=== PATIENT | female | born 1990 | race Caucasian/White ===

== ENCOUNTER 2019-03-03 14:06 | Inpatient (IN) | payer OTHER ==
[2019-03-03] VITALS (10 sets, daily range): BP systolic 109–120; BP diastolic 59–70; PULSE 79–123; TEMP 97.6–98.3
[~2019-03-03] VITALS: Ht 170.2 cm; Wt 71.4 kg
--- NOTE | 2019-03-03 14:10 | NUR ---
Patient arrives ambulatory with spouse with complaints of contractions on and off since 0500 this morning. Patient states they spaced out earlier, but since about 1300 have increased in frequency and strength. Patient denies ROM or vaginal bleeding. Reports normal movement. Changes into gown, EFM explained and placed. VSS. Patient breathing through and moaning with contractions. 1420- SVE by Johanne Nunez RN 2-/-1 with BBOWI. Assessment completed. 1425- Dr. Conteh notified, see physician notification. Patient updated on plan of care. Decision to wait to admit until monitoring and repeat cervical check in one hour as patient would like to labor naturally and does not desire interventions if possible. Emesis noted. 1440- Reactive FHR strip obtained. Patient taken off EFM per order and request to ambulate. Plan for SVE at 1520. Call light in reach.
[2019-03-03] MEDS ORDERED: PEPCID 20MG TAB20 MG PO (14:39)
[2019-03-03] MEDS ORDERED: PROAIR HFA0.09 MG/AC IH (14:40)
[2019-03-03] MEDS ORDERED: PRENATAL (14:40)
--- NOTE | 2019-03-03 15:18 | NUR ---
Patient back on EFM following ambulation. SVE per Johanne Nunez RN /-1. Patient requesting admission at this time. Dr. Conteh notified, see physician notifcation. 1535- IV started in , saline locked per patient request. Consents explained and signed. 1540- Reactive FHR strip obtained. Patient off EFM per order and request to ambulate.
[2019-03-03 15:57] LABS: BASO % 0.2 % (0.0-2.0); GRAN # 14.6 (1.4-6.5); GRAN % 89.2 % (42.2-75.2); HEMATOCRIT 38.7 % (37.0-47.0); HEMOGLOBIN 13.3 g/dl (12.5-16.0); LYMPH # 1.1 (1.2-3.4); LYMPH % 6.4 % (20.0-51.0); MEAN CELL VOLUME 95 fl (80.0-100.0); MEAN CORPUSCULAR HEMOGLOBIN 33 pg (27.0-31.0); MEAN CORPUSCULAR HGB CONC 34 g/dl (33.0-37.0); MEAN PLATELET VOLUME 10.5 fl (7.4-10.4); MONO # 0.6 (0.1-0.6); MONO % 3.4 % (1.7-9.3); PLATELET COUNT 201 K/mm3 (130-400); RED BLOOD COUNT 4.08 M/mm3 (4.10-5.30); REDCELL DISTRIBUTION WIDTH-CV 13.4 % (11.5-14.5)
--- NOTE | 2019-03-03 16:30 | NUR ---
Patient back on EFM following ambulation. Patient requests to stand and lean over bed, RN remains at bedside holding on EFM. Difficulty tracing continuously due to maternal movement. Patient does not desire SVE at this time.
--- NOTE | 2019-03-03 17:30 | NUR ---
Patient back on EFM. Requesting to get in hot tub. Discussed plan for FHR strip and SVE and hot tub following. 1800- SVE 3/100/0 with vertex well applied to cervix. Patient sitting upright. Will notify RN when ready for hot tub. See physician notification.
--- NOTE | 2019-03-03 18:35 | NUR ---
1835- Patient in hot tub at this time, off EFM. Intermittent monitoring to be resumed after 40 minutes. Patient educated on telling nurse imidiately if water breaks or if contractions/pressure changes/gets more intense.
[2019-03-04] VITALS (19 sets, daily range): BP systolic 88–126; BP diastolic 49–77; PULSE 59–134; TEMP 97.7–98.8
--- NOTE | 2019-03-04 07:27 | NUR ---
PATIENT IN KNEE CHEST, PATIENT DELIVERED A VIABLE MALE AT THIS TIME. TO WARMER IN CARE OF EZEQUIEL Flores RN. CORD CLAMPED AND CUT BY DR GARIBAY. [address] GARIBAY. FUNDAL MASSAGE PROVIDED AT THIS TIME. MODERATE TO HEAVY BLEEDING. PATIENT REFUSED PITOCIN. 0750- PITOCIN STARTED AT 333 MLS/ HR PER DR. GARIBAY RECCOMENDATION. 2ND DEGREE LACERATION REPAIRED BY DR GARIBAY. RECOVERY STARTED AT 0800.
--- NOTE | 2019-03-04 09:30 | NUR ---
PATIENT AMBULATED TO BATHROOM FROM BED. [facility] GIVEN, WASHED PATIENTS LEFS, NEW GOWN PROVIDED. MESH PANTIES AND PAD PROVIDED. PATIENT WHEELED HOLDING TO ROOM 215.
--- NOTE | 2019-03-04 14:00 | NUR ---
Patient c/o shortness of breath. Vitals signs obtained - HR 118, O2 sat 100% on room air. Lungs sounds CTA bilaterally. Fundus firm, lochia WNL. Patient denies feeling lightheaded or dizzy. Patient encouraged to sleep. Baby taken to the nursery.
--- NOTE | 2019-03-04 16:30 | NUR ---
Patient awakens from nap, vitals obtained and WNL. Patient up to bathroom with assist, voids without difficulty. Lochia WNL. When returning to bed patient c/o feeling dizzy and short of breath. O2 sat 100% on room air. Dr. Conteh called and notified of patient's status, order for an H&H now recieved.
[2019-03-04 17:21] LABS: HEMATOCRIT 29.3 % (37.0-47.0); HEMOGLOBIN 10.2 g/dl (12.5-16.0)
[2019-03-05 00:15] VITALS: BP 87/54; PULSE 107; TEMP 98.3
--- NOTE | 2019-03-05 00:30 | NUR ---
STEADY WHEN UP TO BR. INT DISCONTINUED PER PT REQUEST
[2019-03-05 04:30] VITALS: BP 88/50; PULSE 100; TEMP 98.2
[2019-03-05 06:54] VITALS: BP 91/59; PULSE 93; TEMP 97.7
[2019-03-05 16:30] VITALS: BP 97/55; PULSE 84; TEMP 98.3
[2019-03-05 20:20] VITALS: BP 93/60; PULSE 114; TEMP 98.4
--- NOTE | 2019-03-06 06:43 | NUR ---
REPORT RECEIVED FROM OFF GOING RN. CARE ASSUMED BY THIS RN.
[2019-03-06 07:34] VITALS: BP 96/56; PULSE 77; TEMP 99
[2019-03-06] MEDS ORDERED: IBU600 MG PO (10:34)
--- NOTE | 2019-03-06 12:52 | NUR ---
Initial visit; Mom thanked [employer] Feeder for offering congratulations and God's blessings for the of her son. [employer] Feeder thanked Mom for choosing [place].
[2019-03-06 16:15] VITALS: BP 94/61; PULSE 97; TEMP 98.9
== END 2019-03-06 17:30 | disposition home or self-care (01) | DRG 807 ==
LOC: LDRO 14:06 → LDR 14:15 → LDRO 15:36 → OB 15:37 → LDR 15:37 → OB 03-04 09:50
PROVIDERS: Obstetrics & Gynecology
PROC: 10E0XZZ Delivery of Products of Conception, External Approach (ICD-10-PCS; principal; 2019-03-04)
PROC: 0KQM0ZZ Repair Perineum Muscle, Open Approach (ICD-10-PCS; 2019-03-04)
DX: O42.92 Full-term premature rupture of membranes, unspecified as to length of time between rupture and onset of labor (principal); Z37.0 Single live birth; O77.0 Labor and delivery complicated by meconium in amniotic fluid; O62.2 Other uterine inertia; O70.1 Second degree perineal laceration during delivery; Z3A.40 40 weeks gestation of pregnancy
CPT/HCPCS: J2590; J7120

== ENCOUNTER 2022-03-28 16:39 | Inpatient (IN) | payer OTHER ==
[~2022-03-28] VITALS: Ht 170.2 cm; Wt 70.0 kg
[~2022-03-28 16:39] MED LIST: IBU600 MG PO; PEPCID 20MG TAB20 MG PO; PRENATAL; PROAIR HFA0.09 MG/AC IH
[2022-04-07] VITALS (31 sets, daily range): BP systolic 89–134; BP diastolic 43–73; PULSE 76–125; TEMP 96.9–100.2
--- NOTE | 2022-04-07 06:30 | NUR ---
0630- PATIENT AMBULATORY TO UNIT WITH SPOUSE. PATIENT ORIENTED TO LABOR ROOM 3. ASSISTED INTO GOWN AND ONTO EFM. EFM AND TOCO TRACING WELL. CONSENTS REVIEWED AND SIGNED, ASSESSMENT COMPLETE, IV TO R FOREARM, BLOOD COLLECTED AND SENT TO LAB PER ORDERS. LR INFUSING SEE EMAR. 0720- SVE BY Isaiah BARTHOLOMEW RN. SEE FLOW RECORD. PIT STARTED PER ORDERS SEE EMAR.
[2022-04-07] MEDS ORDERED: PEPCID 20MG TAB20 MG (07:01)
[2022-04-07 07:49] LABS: BASO % 0.3 % (0.0-2.0); EOS % 0.4 % (0.0-4.0); GRAN # 7.3 K/mm3 (1.4-6.5); HEMATOCRIT 38.4 % (37.0-47.0); HEMOGLOBIN 13.3 g/dl (12.5-16.0); LYMPH # 2.2 K/mm3 (1.2-3.4); MEAN CELL VOLUME 95 fl (80.0-100.0); MEAN CORPUSCULAR HEMOGLOBIN 33 pg (27-31); MEAN CORPUSCULAR HGB CONC 35 g/dl (33.0-37.0); MEAN PLATELET VOLUME 10.1 fl (7.4-10.4); MONO # 0.8 K/mm3 (0.1-0.6); MONO % 7.3 % (1.7-9.3); PLATELET COUNT 204 K/mm3 (130-400); RED BLOOD COUNT 4.06 M/mm3 (4.10-5.30); REDCELL DISTRIBUTION WIDTH-CV 13.2 % (11.5-14.5)
--- NOTE | 2022-04-07 08:15 | NUR ---
0820- PATIENT ASSISTED TO RESTROOM. EFM AND TOOC DISCONNECTED AND NOT TRACING. ON UNIT REVIEWS FHR MONITOR. 0822- TO PATIENT ROOM. DISCUSSES POC WITH PATIENT. 0827- RICHARD PER . /1. AROM CLEAR FLUID. INSTRUCTED PATIENT TO REMAIN IN BED OVER THE NEXT 20 MINUTES.
--- NOTE | 2022-04-07 09:45 | NUR ---
0945- PATIENT ASSISTED TO RESTROOM BY RN. 0950- TOCO AND EFM RECONNECTED. EFM TRACING, CAME OFF MOMENTARILY AND READJUSTED, TOCO READJUSTED TO TRACE CONTRACTIONS. 1000- PATIENT ASSISTED INTO BED AFTER REPORTS FEELING DIZZY, IVF BOLUSING AT THIS TIME.
--- NOTE | 2022-04-07 11:00 | NUR ---
1055- PATIENT ASSISTED TO THE RESTROOM. TOCO AND EFM DISCONNETED. ASSISTED BACK ONTO BIRTHING BALL, EFM NOT TRACING WELL. DISCUSSED RESTARTING PITOCIN WITH PATIENT AND SPOUSE. PATIENT QUESTIONS ASKED AND ANSWERED. PATIENT STATED SHE WAS OKAY WITH RESTARTING PITOCIN AT A LOW DOSE. FLUIDS TURNED DOWN, PITOCIN RESTARTED AT 2MU PER PROTOCOL.
--- NOTE | 2022-04-07 13:10 | NUR ---
1310- PATIENT REQUESTED TO SIT IN THE WHIRLPOOL. PATIENT ASSISTED TO WHIRLPOOL VITAL SIGNS AND MONITORING WILL CONTINUE PER PROTOCOL.
--- NOTE | 2022-04-07 14:00 | NUR ---
1400- WHIRLPOOL TEMP CHECKED PER HOSPITAL POLICY. VITAL SIGNS AND DOPPLER PERFORMED, SEE FLOW RECORD. 1438- PATIENT BACK TO BED. EFM AND TOCO TRACING WELL. PATIENT AND SPOUSE WORKING THROUGH CONTRACTIONS TOGETHER.
--- NOTE | 2022-04-07 15:10 | NUR ---
1512- [facility] 1532- YASSINE Cormier SVE 8-/0. Notified of cervical change and ready for delivery. 1537- Patient assisted back into bed after SVE. Placed back on EFM and TOCO in preparation for delivery. 1550- arrives to patients room for delivery. Performs SVE and determines patient is complete. Patient instructed to push with contractions. 1600- Spontaneous delivery of head and body. placed skin to skin and cord clamping delayed until cord no longer pulsates per patient request. 1611- Spontaneous delivery of placenta. Fundus massage ot firm and pitocin started per protocol.
[2022-04-08 01:00] VITALS: BP 84/44; PULSE 76; TEMP 98.8
[2022-04-08 07:00] VITALS: BP 101/53; PULSE 65; TEMP 98.3
--- NOTE | 2022-04-08 09:23 | NUR ---
Initial visit; Patient thanked Rat[employer]rinter for offering congratulations and God's blessings for the of her daughter. Patient requested prayer for her daughter's difficulty breathing and her health in general. Ratoprinter will keep both [place] and her daughter in her prayers.
[2022-04-08] MEDS ORDERED: IBU600 MG PO (10:51)
[2022-04-08 14:30] VITALS: BP 97/56; PULSE 52; TEMP 98
[2022-04-08 20:15] VITALS: BP 99/67; PULSE 76; TEMP 98.8
[2022-04-09 07:25] VITALS: BP 98/60; PULSE 78; TEMP 98.7
--- NOTE | 2022-04-09 13:02 | NUR ---
1205 PATIENT HERE FROM CARDIOLOGY OFFICE FOR HIGH BLOOD PRESSURES IN OFFICE. EFM ON FHT 120, ACCELERATIONS NOTED AND BABY VERY ACTIVE. OCCASIONAL CONTRACTIONS ON MONITOR BUT NOT FELT BY PATIENT AND PALPATE MILD. DR LOZADA CALLED WITH ALL ABOVE INFORMATION AND ORDERS GIVEN. PATIENT DENIES CHEST PAIN OR ABDOMNAL PAIN. SLIGHT SWELLING TO FEET. NO HEADACHES OTHER THAN HISTORY OF MIGRAINE.
== END 2022-04-09 14:30 | disposition home or self-care (01) | DRG 807 ==
LOC: OB 16:39 → LDR 04-07 06:21 → OB 04-07 06:21
PROVIDERS: ADMIT Obstetrics & Gynecology
PROC: 10E0XZZ Delivery of Products of Conception, External Approach (ICD-10-PCS; principal; 2022-04-07)
PROC: 10907ZC Drainage of Amniotic Fluid, Therapeutic from Products of Conception, Via Natural or Artificial Opening (ICD-10-PCS; 2022-04-07)
PROC: 0HQ9XZZ Repair Perineum Skin, External Approach (ICD-10-PCS; 2022-04-07)
PROC: 3E033VJ Introduction of Other Hormone into Peripheral Vein, Percutaneous Approach (ICD-10-PCS; 2022-04-07)
DX: O48.0 Post-term pregnancy (principal); Z37.0 Single live birth; Z3A.41 41 weeks gestation of pregnancy; O36.63X0 Maternal care for excessive fetal growth, third trimester, not applicable or unspecified; K21.9 Gastro-esophageal reflux disease without esophagitis; O99.62 Diseases of the digestive system complicating childbirth; O70.0 First degree perineal laceration during delivery; Z53.29 Procedure and treatment not carried out because of patient's decision for other reasons
CPT/HCPCS: J2590; J7120